=== PATIENT | female | born 1970 | race Caucasian/White ===

== ENCOUNTER 2025-01-20 09:51 | Emergency (ER) | payer OTHER, SELFPAY ==
[2025-01-20 10:15] VITALS: BP 229/161; RESP 118; O2SAT 99
--- NOTE | 2025-01-20 10:15 | DI.RAD_ITS ---
Exam(s) XR RIBS LT W PA LAT CHEST CLINICAL HISTORY fall, left rib pain after fall. COMPARISON: No exams were available for comparison TECHNIQUE:: PA and lateral views of the chest and four views of the left ribs were performed. FINDINGS: LUNGS: Linear atelectasis at the lung bases, otherwise clear. No pleural abnormality seen. HEART: Normal. MEDIASTINUM: Normal. BONES: There is a nondisplaced fracture of the lateral left 6 rib. There is a question of a nondisplaced fracture at the end of the 7th rib. There is a minimally displaced fracture of the distal right 8th rib the also question nondisplaced fracture of the 9th rib. There is considerable overlap between ends of the the 8th and 9th ribs. No compression fractures are seen in the thoracic spine. No bony destructive lesion is seen. OTHER FINDINGS: None. IMPRESSION: 1. Nondisplaced left anterolateral rib fractures 2. No acute pulmonary findings. The preliminary [facility] report was reviewed.
--- NOTE | 2025-01-20 10:16 | W.ED.GENAD ---
Discharge Plan Disposition Patient Disposition: Home Condition: Good Discharge Details Clinical Impression: Fracture of rib of left side, Fracture of left sixth rib, Fracture of left ninth rib Primary Care Provider: None,None ED Provider: Armond Vega Home Meds and New Rx's Prescriptions: New lidocaine [Lidoderm] 5 % adhesive patch,medicated 1 patch Topical Q24H Qty: 15 0RF Discharge Instructions Instructions: Rib fractures in adults Additional Instructions: At this time you have evidence of a fracture for your left 6th and 9th rib. Thankfully there is no evidence of popped lung or fluid collection. The remainder of your exam is reassuring. Treatment for rib fractures is as follows: 1: To help diminish the inflammation and pain, please take 1000 mg of Tylenol every 6 hours, and 800 mg of ibuprofen every 6 hours. These are the maximum doses, and you can use less if needed. It can cause stomach irritation, and so if you have any upset stomach, please stop taking them immediately. 2: As an alternative to ibuprofen, you can apply topical Voltaren gel to the tender area every 8 hours. 3: Please apply the Lidoderm patches as prescribed to help with the pain. If your insurance does not cover the prescribed medication, you can get a slightly lower concentration [id number] alternative. 4: Please use a gentle rib binder as needed to help with the pain. The literature now suggest that if you are utilizing the incentive spirometer it can mitigate the risk of pneumonia. 5: Please use the incentive spirometer as directed If you notice any worsening of your symptoms, or any new symptoms such as vomiting, diarrhea, fever, chills, shortness of breath, chest pain, numbness, weakness, or fainting , please return immediately to the emergency department for reevaluation. Please follow up with your primary care provider as soon as possible for reassessment and reevaluation. As always, it was a pleasure participating in your medical care today. Every hour for the next 1 to 2 weeks or as your pain or symptoms persist. HPI General Date/Time Provider Initiated Documentation: 01/20/25 09:57. HPI Narrative: 54-year-old female with a past medical history of hypertension, presents today for evaluation of left flank pain. Patient states that 3-1/2 days ago she was in her bathtub when she slipped and her left flank landed on the wall of the tub. She had immediate pain. Pain has been persistent for the last 3 and half days. She denies fever or chills. She denies dysuria or hematuria. She denies any vomiting or diarrhea but does admit to persistent left-sided flank/chest pain. Pain is made worse whenever she breathes. She denies any persisting cough. She has been taking Motrin without significant improvement of her symptoms. She presents today out of concern for the persistence of the pain. Related Data Home Medications ?Medication ?Instructions ?Recorded ?Confirmed lidocaine 5 % topical patch 1 patch topical Q24H #15 ea 01/20/25 (Lidoderm) Previous Rx's ?Medication ?Instructions ?Recorded lidocaine 5 % topical patch 1 patch topical Q24H #15 ea 01/20/25 (Lidoderm) Allergies Allergy/AdvReac Type Severity Reaction Status Date / Time No Known Allergies Allergy Unverified 01/20/25 10:15 General Stated Complaint: Fall/Non TraumaCriteria JABARI: 4 Exam Narrative Exam Narrative: 1.Const: Well-nourished, Well-developed, appearing stated age 2.Eyes: PERRL, no conjunctival injection, and symmetrical lids. 3.ENT: Atraumatic external nose and ears. Moist MM. Neck: Symmetric, trachea midline, No thyromegaly. 4.CVS: +S1/S2, Peripheral pulses 2+ and equal in all extremities. Brisk capillary refill in all extremities. 5.RESP: Unlabored respiratory effort. Clear to auscultation bilaterally. No wheezes rales or rhonchi. Patient demonstrates tenderness over ribs 6 7 and 8 on the lateral posterior aspect of her chest. No bruising, no paradoxical movement, no hollow components or tympany. No evidence of subcutaneous crepitus on palpation. 6.GI: Soft, Nontender/Nondistended, No hepatosplenomegaly. No guarding or rebound. No left-sided abdominal pain or tenderness, no tenderness over the left flank space below the ribs. 7.MSK: Normocephalic/Atraumatic, Extremities w/o deformity or ttp No cyanosis or clubbing, Normal movement of all extremities. No midline cervical thoracic or lumbar spine tenderness. 8.Skin: Warm, Dry. No rashes or lesions. 9.Neuro: director orange II-XII grossly intact. Sensation grossly intact, no focal neurologic deficits. 10.Psych: (AAO) x3. Appropriate mood and affect Medical Decision Making 54-year-old female with a past medical history of hypertension, presents today for evaluation of left flank pain. Patient states that 3-1/2 days ago she was in her bathtub when she slipped and her left flank landed on the wall of the tub. She had immediate pain. Pain has been persistent for the last 3 and half days. She denies fever or chills. She denies dysuria or hematuria. She denies any vomiting or diarrhea but does admit to persistent left-sided flank/chest pain. Pain is made worse whenever she breathes. She denies any persisting cough. She has been taking Motrin without significant improvement of her symptoms. She presents today out of concern for the persistence of the pain. Exam demonstrates a well-appearing female, she denies striking her head or any loss of consciousness with the initial slip in the bathtub. She demonstrates evidence of pain on palpation of the left ribs between ribs 6 through 8. No red flags to suggest paradoxical movements, subcutaneous crepitus, or other abnormalities. No signs of tension pneumothorax. Differential includes rib fracture, rib contusion, small pneumothorax or hemothorax. No significant abdominal pain or tenderness to suggest significant intra-abdominal injury, however we will get a UA to evaluate for hematuria. No tenderness over the spleen. Will get an x-ray of the chest and ribs. Of note, patient initially refused vital signs. She states that she is usually extremely hypertensive, and does not want to get her vital signs performed because the doctors always freak out when they see it. Patient states that her blood pressure is always lower at home, but whenever she goes to the doctor's office she feels quite nervous. And she does today as well. 12:11 PM X-ray results have returned, there is evidence of a very mild 6th and 9th rib fracture. No evidence of pneumothorax, hemothorax, or other significant abnormality. Vital signs have improved. She still is hypertensive, and declines any therapy or treatment at this time. Repeat abdominal exam continues to show no evidence of acute abdominal pain, pain over the spleen, or signs or symptoms to suggest acute intra-abdominal hemorrhage. Patient otherwise feels well and stable. With the presence of the rib fracture, in the absence of other life-threatening component, I do feel the patient stable for discharge at this time. We we will recommend NSAID therapy, Lidoderm patch, Voltaren gel, mild rib binder as needed, and continued use for the incentive spirometer. Patient understands this. If these conservative therapies fail, the patient may be candidate for potential rib block which we discussed with her as well for the future. Discussed red flags for which to return. Discussed safe behaviors while dealing with this refracture. I have extensively reviewed the treatment plan and discharge instructions with the patient and their family. I have addressed all patient concerns at this time. The patient and family was made aware of what symptoms to monitor for that would warrant a return to the emergency department. Discussed the plan with the patient and family, they demonstrate verbal understanding and agreement with our assessment and plan at this time. The documentation in this chart was dictated using FRAMED dictation software. Please excuse any dictation errors. FINDINGS: Bones/joints: Nondisplaced left lateral 6th rib fracture. Minimally displaced left lateral 9th rib fracture. Soft tissues: Normal. IMPRESSION: Nondisplaced left lateral 6th rib fracture. Minimally displaced left lateral 9th rib fracture FINDINGS: Lungs: Unremarkable. No consolidation. Pleural spaces: Unremarkable. No pleural effusion. No pneumothorax. Heart/Mediastinum: Unremarkable. No cardiomegaly. Bones/joints: Nondisplaced left lateral 6th rib fracture. Minimally displaced left lateral 9th rib fracture IMPRESSION: Nondisplaced left lateral 6th rib fracture. Minimally displaced left lateral 9th rib fracture Thank you for allowing us to participate in the care of your patient. Dictated and Authenticated by: Tripp Nicole MD 01/20/2025 11:42 AM Eastern Time ([place] & [place]) [facility] All Active Problems (Updated 01/20/25 @ 12:06 by Armond Vega DO) Fracture of left ninth rib (Acute) Fracture of left sixth rib (Acute) Fracture of rib of left side (Acute) Social History Smoking/Tobacco Use Status: Never Smoking risk assessment performed?: Yes Alcohol Intake: never
[2025-01-20 10:40] LABS: Bilirubin Negative (Negative); Blood Negative (Negative); Clarity Clear (Clear); Glucose Negative (Negative); Ketones Negative (Negative); Leukocyte Esterase Trace (Negative); Nitrite Negative (Negative); Specific Gravity 1.015 (1.005-1.025); Urobilinogen 0.2 mg/dL (Up to 0.2)
[2025-01-20 10:58] LABS: Bacteria Few HPF (Negative); C & S Indicated? No; Casts Negative LPF (Negative); Crystals Negative HPF (Negative); Epithelial Cells Many HPF (Negative); Mucus Trace (Negative); RBC 0-2 HPF (0-2)
--- NOTE | 2025-01-20 11:43 | DI.[facility]_ITS ---
PROCEDURE INFORMATION: Exam: XR Left Ribs Exam date and time: 01/20/2025 10:43 AM Age: 54 years old Clinical indication: Injury or trauma; Other: Fall, left rib pain after fall; Rib area, left side; Blunt trauma TECHNIQUE: Imaging protocol: Radiologic exam of the left ribs. Views: 2 views. COMPARISON: No relevant prior studies available. FINDINGS: Bones/joints: Nondisplaced left lateral 6th rib fracture. Minimally displaced left lateral 9th rib fracture. Soft tissues: Normal. IMPRESSION: Nondisplaced left lateral 6th rib fracture. Minimally displaced left lateral 9th rib fracture PROCEDURE INFORMATION: Exam: XR Chest Exam date and time: 01/20/2025 10:43 AM Age: 54 years old Clinical indication: Injury or trauma; Other: Fall, left rib pain after fall; Rib area, left side; Blunt trauma TECHNIQUE: Imaging protocol: Radiologic exam of the chest. Views: 2 views. COMPARISON: No relevant prior studies available. FINDINGS: Lungs: Unremarkable. No consolidation. Pleural spaces: Unremarkable. No pleural effusion. No pneumothorax. Heart/Mediastinum: Unremarkable. No cardiomegaly. Bones/joints: Nondisplaced left lateral 6th rib fracture. Minimally displaced left lateral 9th rib fracture IMPRESSION: Nondisplaced left lateral 6th rib fracture. Minimally displaced left lateral 9th rib fracture Dictated and Authenticated by: Tripp Nicole MD. Orderin Gary Leahy MD
[2025-01-20] MEDS: Lidocaine 5% Patch 1 PATCH TP (12:11)
== END 2025-01-20 12:28 | disposition home or self-care (01) ==
PROVIDERS: Emergency Provider Student in an Organized Health Care Education/Training Program
DX: S22.42XA Multiple fractures of ribs, left side, initial encounter for closed fracture (principal); I10 Essential (primary) hypertension; W18.2XXA Fall in (into) shower or empty bathtub, initial encounter; Y93.E1 Activity, personal bathing and showering; Y92.012 Bathroom of single-family (private) house as the place of occurrence of the external cause
CPT/HCPCS: 81025; 99284; 71046; 71100; 81003; 81015; 99283